=== PATIENT | male | born 1960 | race Caucasian/White ===

== ENCOUNTER 2016-03-20 13:22 | Inpatient (IN) ==
[2016-03-20] MEDS ORDERED: THIAMINE IM STA (13:26)
[2016-03-20] MEDS ORDERED: URO-JET MUCOUSMEMB STA (13:37)
[2016-03-20 13:53] LABS: BASOPHILS % (AUTO) 0.7 % (0.0-3.0); EOSINOPHILS # (AUTO) 0.1 K/ul (0.0-0.7); EOSINOPHILS % (AUTO) 1.8 % (0.0-7.0); HEMOGLOBIN 14.6 g/dl (14.0-18.0); IMMATURE GRANULOCYTE % (AUTO) 0.2 % (0.0-5.0); LYMPHOCYTES # (AUTO) 1.7 K/uL (0.60-3.4); LYMPHOCYTES % (AUTO) 37.6 (10.0-50.0); MEAN CORPUSCULAR VOLUME 88.3 fl (80.0-94.0); MONOCYTES # (AUTO) 0.5 K/uL (0.4-2.0); MONOCYTES % (AUTO) 10.4 (0-10); NEUTROPHILS # (AUTO) 2.2 K/ul (2.0-6.9); NEUTROPHILS % (AUTO) 49.3; PLATELET COUNT 183 10^3/uL (140-440); RED BLOOD COUNT 4.87 10^6/ul (4.70-6.10)
[2016-03-20 13:58] LABS: BILIRUBIN,URINE 1+ (NEGATIVE); KETONES,URINE Negative (NEGATIVE); LEUKOCYTE ESTERASE ,URINE Negative (NEGATIVE); NITRITE,URINE Negative (NEGATIVE); PROTEIN,URINE Trace (NEGATIVE); URINE, BLOOD Negative (NEGATIVE)
[2016-03-20 14:03] LABS: ADD URINE MICROSCOPIC YES
[2016-03-20 14:14] LABS: COCAIN SCREEN,URINE NEGATIVE (NEGATIVE)
[2016-03-20 14:20] LABS: ALANINE AMINOTRANSFERASE 148 U/L (12-78); ALBUMIN 3.7 g/dL (3.4-5.0); ALBUMIN/GLOBULIN RATIO 1.23; ALKALINE PHOSPHATASE 94 U/L (50-136); ANION GAP 15.8; ASPARTATE AMINO TRANSFERASE 122 U/L (15-37); BILIRUBIN,TOTAL 1.05 mg/dL (0.00-1.20); BLOOD UREA NITROGEN 14 mg/dL (7-18); BUN/CREATININE RATIO 15.38; CALCIUM 8.7 mg/dL (8.2-10.2); CARBON DIOXIDE 25 mmol/L (21-32); CHLORIDE 104 mmol/L (98-107); CREATINE KINASE 42 U/L; CREATININE 0.91 mg/dL (0.60-1.10); GLUCOSE 109 mg/dL (70-100); POTASSIUM 3.8 mmol/L (3.5-5.1); SODIUM 141 mmol/L (136-145); TOTAL PROTEIN 6.7 g/dL (6.4-8.2)
--- NOTE | 2016-03-20 14:37 | DI ---
EXAM: Single view of the chest. History: Cough. Comparison: Chest radiograph 10/07/2015 Findings: Normal heart size. No focal consolidation. No appreciable pleural fluid and no pneumoth orax. No acute osseous abnormalities. Impression: No acute cardiopulmonary process.
[2016-03-20] MEDS ORDERED: ATIVAN IVP STA (14:55)
--- NOTE | 2016-03-20 15:05 | CT ---
EXAM: CT BRAIN HISTORY: Altered mental status TECHNIQUE: CT brain without intravenous contrast. 5-mm axial sections with Reformations. COMPARISON: 07/31/2014 FINDINGS: Slight motion artifact degrades image quality. Brain is unremarkable without distinct evidence of h emorrhage or large vessel distribution recent ischemic infarction. There is no suggestion of acute hydrocephalus or subdural fluid collection. No mass or mass effect. Along the right lower occipital bone. There is a linear lucency which it is unchanged since prior s tudy and therefore unlikely to represent an acute fracture. Correlate clinically. Cranium was other cárdenas grossly unremarkable. Mastoid air cells are aerated and the visualized paranasal sinuses are c lear. IMPRESSION: No acute intracranial process. Linear lucency of the right occipital bone as described.
[2016-03-20 15:37] LABS: ACETAMINOPHEN < 3 ug/ml (10-30); SALICYLATE < 5.0 mg/dL (2.8-20.0)
--- NOTE | 2016-03-20 15:51 | ED.PDOC ---
General ED Provider: Dr. CRAIG MARTI Chief Complaint: Altered Mental Status Stated Complaint: altered mental status Time Seen by Physician: 13:24 Mode of Arrival: Carried Information Source: Patient, Family Exam Limitations: No limitations Nursing and Triage Documentation Reviewed and Agree: Yes Neurological Complaint Exam - Altered Mental Status Complaint/Exam Current Mental Status: Confusion, Agitation Last Known Well: this morning per friends Onset: Sudden Duration: present Symptoms Are: Still present Timing: Intermittent Episodes Lasting: Hours Initial Severity: Moderate Current Severity: Moderate Eye Deviation Present: No Character: Reports: Confusion, Agitation Aggravating: Reports: Drug abuse. Denies: Trauma, Ingestion, Environmental exposure Alleviating: Reports: Spontaneous resolution Associated Signs and Symptoms: Reports: Fever Related History: Reports: Similar episode Cardiac Risk Factors: Reports: None Related Surgical History: Reports: None Carotid Bruit Present: No Glascow Coma Scale (see protocol): 15 Nystagmus Present: No Gag Reflex Present: Yes Meningeal Signs Positive: No Focal Weakness: Present: None Focal Sensory Loss: Present: None Gait: Unable [id number]: Normal Findings Signs of Injury: Present: Normal findings Thrombolytics Considered: No Differential Diagnoses: Intoxication, Metabolic Disorder, Hypoglycemia, Overdose , Seizure, Sepsis Review of Systems - Review Of Systems Constitutional: Reports: Malaise, Weakness Eyes: Reports: No symptoms Ears, Nose, Mouth, Throat: Reports: No symptoms Respiratory: Reports: No symptoms Cardiac: Reports: No symptoms GI: Reports: Abdominal pain : Reports: No symptoms Musculoskeletal: Reports: No symptoms Skin: Reports: No symptoms Neurological: Reports: Cognitive dysfunction Endocrine: Reports: No symptoms Hematologic/Lymphatic: Reports: No symptoms All Other Systems: Reviewed and Negative Past Medical History - Past Medical History Previously Healthy: Yes Endocrine: Reports: None Cardiovascular: Reports: None Respiratory: Reports: None Hematological: Reports: None Gastrointestinal: Reports: None Genitourinary: Reports: None Neuro/Psych: Reports: None Musculoskeletal: Reports: None Cancer: Reports: None - Surgical History General Surgical History: Reports: Unknown - Family History Family History: Reports: Unknown - Social History Smoking Status: Former smoker Hx Substance Use: Yes Alcohol Screening: Heavy - Immunizations Tetanus Shot up to Date: Yes Physical Exam - Physical Exam Appearance: Well-appearing, No pain distress, Well-nourished Eyes: DERICK, EOMI, Conjunctiva clear ENT: Ears normal, Nose normal, Oropharynx normal Respiratory: Airway patent, Breath sounds clear, Breath sounds equal, Respirations nonlabored Cardiovascular: RRR, Pulses normal, No rub, No murmur GI/: Soft, Nontender, No masses, Bowel sounds normal, No Organomegaly Musculoskeletal: Normal strength, ROM intact, No edema, No calf tenderness Skin: Warm, Dry, Normal color Neurological: Sensation intact, Motor intact, Reflexes intact, Cranial nerves intact, Alert, Oriented Psychiatric: Affect appropriate, Mood appropriate Interpretation - Radiology Interpretation Radiology Interpretation By: Radiologist Radiology Results: No acute changes Re-Evaluation - Re-Evaluation Time of Re-Evaluation: 15:00 Status: Improved Vital Signs Stable: Yes Pain Level: 0 Appearance: NAD Lungs: Clear Skin: Warm and Dry Neuro: Alert and Oriented X3 CV: RRR - Re-Evaluation Time of Re-Evaluation: 15:52 Status: Improved Vital Signs Stable: Yes Pain Level: 0 Appearance: NAD Skin: Warm and Dry Neuro: Alert and Oriented X3 CV: RRR Physician Notification - Case Discussed Physician Notified: tucker Time of Notification: 15:53 Critical Care Note - Critical Care Note Total Time (mins): 0 Course - Course Hematology/Chemistry: 03/20/16 13:40 03/20/16 13:40 Orders, Labs, Meds: Lab Review 03/20/16 03/20/16 03/20/16 13:20 13:40 13:52 WBC 4.50 RBC 4.87 Hgb 14.6 Hct 43.0 MCV 88.3 MCH 30.0 MCHC 34.0 RDW Coeff of Jatin 14.8 Plt Count 183 Immature Gran % (Auto) 0.2 Neut % (Auto) 49.3 Lymph % (Auto) 37.6 [place] % (Auto) 10.4 H Eos % (Auto) 1.8 Baso % (Auto) 0.7 Immature Gran # (Auto) 0.0 Neut # 2.2 Lymph # 1.7 [place] # 0.5 Eos # 0.1 Baso # 0.0 Sodium 141 Potassium 3.8 Chloride 104 Carbon Dioxide 25 Anion Gap 15.8 BUN 14 Creatinine 0.91 Estimated GFR (MDRD) 86.00 BUN/Creatinine Ratio 15.38 Glucose 109 H Calcium 8.7 Total Bilirubin 1.05 AST 122 H ALT 148 H Alkaline Phosphatase 94 Total Creatine Kinase 42 Troponin I 0.0120 Total Protein 6.7 Albumin 3.7 Globulin 3.0 Albumin/Globulin Ratio 1.23 Urine Color Yellow Urine Clarity Clear Urine pH 6.0 Ur Specific [place] >=1.030 Urine Protein Trace Urine Glucose (UA) Negative Urine Ketones Negative Urine Blood Negative Urine Nitrite Negative Urine Bilirubin 1+ Urine Urobilinogen 0.2 Ur Leukocyte Esterase Negative Urine Microscopic WBC 0-2 Ur Squamous Epith Cells 0-2 Urine Mucus 1+ Salicylate Level mg/dL < 5.0 Urine Opiates Screen Negative Ur Oxycodone Screen Negative Urine Methadone Screen Negative Ur Propoxyphene Screen Negative Acetaminophen < 3 L Ur Barbiturates Screen Negative U Tricyclic Antidepress Negative Ur Phencyclidine Scrn Negative Ur Amphetamine Screen Positive U Methamphetamines Scrn Positive U Benzodiazepines Scrn Negative Urine Cocaine Screen Negative U Cannabinoids Screen Positive Plasma/Serum Alcohol < 10.0 Orders Category Date Time Status EKG-(ED ONLY) Stat CARDIO 03/20/16 13:25 Completed ED IV/MEDIPORT/POWERPORT .ONCE EMERGENCY 03/20/16 13:25 Active Francis [ED CATHETER INSERTION AND CARE] .ONCE EMERGENCY 03/20/16 13:37 Active BLOOD ALCOHOL Stat LAB 03/20/16 13:40 Completed BLOOD CULTURE Stat LAB 03/20/16 13:40 Received CBC W/ AUTO DIFF Stat LAB 03/20/16 13:40 Completed COMPREHENSIVE METABOLIC PANEL Stat LAB 03/20/16 13:40 Completed CREATINE KINASE Stat LAB 03/20/16 13:40 Completed MOLECULAR GROUP A STREP Stat LAB 03/20/16 13:50 Results SALICYLATE Stat LAB 03/20/16 13:20 Completed STREP SCREEN Stat LAB 03/20/16 13:50 Results TROPONIN I Stat LAB 03/20/16 13:40 Completed TYLENOL LEVEL [ACETAMINOPHEN] Stat LAB 03/20/16 13:20 Completed UA [URINALYSIS C & S IF INDICATED] Stat LAB 03/20/16 13:52 Completed URINE DRUG SCREEN (RAPID FOR ED) [DRUG SCREEN, URINE, LAB 03/20/16 13:52 Completed RAPID] Stat 0.9 % Sodium Chloride [Saline Flush] MEDS 03/20/16 13:25 Active 1 syr IVF PRN PRN Lidocaine HCl [Uro-Jet] MEDS 03/20/16 13:37 Discontinued 10 ml MUCOUSMEMB ONCE STA Lorazepam Inj [Ativan] MEDS 03/20/16 14:55 Discontinued 0.5 mg IVP ONCE STA Vitamin B-1 Inj [Thiamine] MEDS 03/20/16 13:26 Discontinued 100 mg IM ONCE STA CHEST, 1V AP ONLY Stat RADS 03/20/16 13:[address] ABD/PEL WO RENAL STONE PROT Stat RADS 03/20/16 15:[address] CHEST W/O CONTRAST Stat RADS 03/20/16 15:[address] HEAD W/O CONTRAST Stat RADS 03/20/16 13:27 Completed Medications Generic Name Dose Route Start Last Admin Trade Name Freq PRN Reason Stop Dose Admin Sodium Chloride 1 syr 03/20/16 13:25 Saline Flush IVF PRN PRN To flush IV Discontinued Medications Generic Name Dose Route Start Last Admin Trade Name Freq PRN Reason Stop Dose Admin Lidocaine HCl 10 ml 03/20/16 13:37 03/20/16 13:45 Uro-Jet MUCOUSMEMB 03/20/16 13:38 10 ml ONCE STA Administration Lorazepam 0.5 mg 03/20/16 14:55 Ativan IVP 03/20/16 14:56 ONCE STA Thiamine HCl 100 mg 03/20/16 13:26 03/20/16 14:11 Thiamine IM 03/20/16 13:27 100 mg ONCE STA Administration Vital Signs: Temp Pulse Resp BP Pulse Ox 03/20/16 15:32 96 H 16 106/62 94 L 03/20/16 15:14 103 H 20 115/66 96 03/20/16 14:49 112 H 20 141/87 H 95 03/20/16 14:25 114 H 20 143/99 H 03/20/16 13:23 100.0 F H 107 H 16 116/74 95 Departure - Departure Time of Disposition: 17:00 Disposition: ADMITTED INPATIENT Discharge Problem: Altered mental status, Methamphetamine abuse Instructions: Methamphetamine Abuse (ED) Condition: Good Pt referred to PMD for follow-up: Yes (admitt) Allergies/Adverse Reactions: Allergies No Known Allergies Allergy (Unverified 07/31/14 19:09) Home Medications: Ambulatory Orders 1 [Unobtainable] 07/31/14 Disposition Discussed With: Patient
--- NOTE | 2016-03-20 16:18 | CT ---
EXAM: CT of the chest without cough. History: Cough. Comparison: CT abdomen pelvis 03/20/2016, chest radiograph 03/20/2016 Technique: Multiplanar CT images through the thorax were obtained without the administration of IV contrast Findings: Heart size is within normal limits. No pericardial effusion. There are mild coronary ca lcifications. The main pulmonary artery is dilated measuring 3.7 cm in caliber. No pathologically enlarged axillary or mediastinal lymph nodes. Evaluation for hilar lymph nodes is limited due to th e lack of contrast administration but no bulky hilar adenopathy is seen. No consolidated pneumonia. Very mild upper lobe centrilobular emphysema. Dependent atelectasis. 3 mm right lower lobe pleural-based nodule. There are a few ground-glass nodules within the right lo wer lobe with tree-in-bud configuration. No pleural fluid and no pneumothorax. Details in the upper abdomen, please see dedicated CT of the abdomen pelvis done on the same day. N o acute osseous abnormalities. Impression: 1. Right lung micronodules with tree-in-bud configuration most likely related to infectious or infl ammatory process but given the mild emphysema would recommend follow-up chest CT in 6 months to doc ument resolution. 2. There is no consolidated pneumonia. 3. Dependent atelectasis. 4. Dilated main pulmonary artery indicating pulmonary arterial hypertension. 5. Mild coronary calcifications.
--- NOTE | 2016-03-20 16:27 | CT ---
EXAM: CT ABDOMEN AND PELVIS HISTORY: Abdominal pain TECHNIQUE: CT abdomen and pelvis without intravenous contrast. Images were reconstructed using 5 m m section thickness. Reformations were prepared. COMPARISON: 10/07/2015 FINDINGS: Diagnostic limitations exist without including contrast enhanced images. There is artifact from mot ion and the arms remaining down within the scanning field of view limiting image quality. Slightly heterogeneous appearance of the liver, otherwise the organ is within normal limits. Spleen unremark able. The gallbladder is mildly distended. There is at least one tiny calculus within the gallblad mil. No obvious gallbladder wall thickening or surrounding inflammatory infiltration of the abdomin al fat. No gross pancreatic or adrenal pathology. There is no nephrolithiasis or hydronephrosis. The visualized ureters are grossly unremarkable. Mild atherosclerotic disease. Stable nonspecific retroperitoneal lymph nodes, greater number than normally seen for patient age. No gastric distension. The appendix has no evidence of inflammation. Bowel gas pattern is within n ormal limits. There is mild distal colon diverticulosis. Circumferential urinary bladder wall thic kening. There is a tiny drop of gas within the urinary bladder. No prostate enlargement. There is no ascites. No abdominal wall hernia. Bones reveal bilateral pars into articular areas defects at L5 with minimal spondylolisthesis. Lung bases have no acute infiltrates. No visible pneumoperiton eum. IMPRESSION: 1. Circumferential urinary bladder wall thickening is mild to moderate. This may be related to cys titis or a degree of chronic partial urinary bladder outlet obstruction. There is a tiny drop of ga s within urinary bladder of indeterminate etiology, possibly recent catheterization. Correlate wit h history and urinalysis if indicated. 2. Mildly distended gallbladder with at least one tiny calculus. 3. Heterogeneous liver. 4. Stable retroperitoneal lymph nodes. 5. Mild distal colon diverticulosis.
[2016-03-20] MEDS: ATIVAN IVP SCH (19:05)
[2016-03-20 22:42] VITALS: BMI 19.4
[2016-03-20 23:35] LABS: TROPONIN I 0.01 ng/ml (0.0000-0.4000)
[2016-03-21] MEDS: ATIVAN IVP SCH ×2 (00:48→05:42)
[2016-03-21] MEDS: SODIUM CHLORIDE 1,000 ML IV SCH ×2 (06:08)
[2016-03-21 09:51] VITALS: BP 122/74; TEMP 97.9
--- NOTE | 2016-03-23 14:19 | HP ---
DATE OF SERVICE: 03/20/16 REASON FOR HOSPITALIZATION: Change in mental status. HISTORY OF PRESENT ILLNESS: The patient is a 55 year old male who was brought by the friend to the emergency room as she was check on him he was not able to speak and behavior was not right and his answering was not right and following the commands, disoriented, weak, sluggish speech and slurry speech. When he was elevated in the emergency room he was following the commands and slurry speech was there and generalized weakness was there. In the evaluation Dr. Canales did the CAT scan of the head which did not show any stroke but the urine drug screen was positive for the amphetamine and methamphetamine and cannabis and the alcohol was less than 10. His liver enzymes were elevated 122 and 148. At that time the patient was admitted to the hospital for change in mental status and drug overdose. REVIEW OF SYSTEMS: Difficult to obtain from the patient at that time. CONSTITUTIONAL: No night sweats. No fatigue, malaise, lethargy. No fever or chills. HEENT: Eyes: No visual changes. No eye pain. No eye discharge. ENT: No runny nose. No epistaxis. No sinus pain. No sore throat. No odynophagia. No ear pain. No congestion. RESPIRATORY: No cough, no congestion. No hemoptysis. CARDIOVASCULAR: No angina symptoms. No CHF symptoms. No atypical chest pain for CAD. No palpitations. No shortness of breath. GASTROINTESTINAL: No abdominal pain. No nausea or vomiting. No diarrhea or constipation. No hematemesis. No hematochezia. GENITOURINARY: No urgency. No frequency. No dysuria. No hematuria. No obstructive symptoms. No discharge. No pain. No significant abnormal bleeding. MUSCULOSKELETAL: No musculoskeletal pain. No joint swelling. No arthritis. NEUROLOGICAL: No headache. No neck pain. No syncope. No seizures. No dizziness. PSYCHIATRIC: Not anxious. No depression. No suicidal thoughts. No homicidal thoughts. SKIN: No rash. No lesions. No wounds. ENDOCRINE: No unexplained weight loss. No weight gain. HEMATOLOGIC/LYMPHATIC: No anemia. No purpura. No petechiae. No prolonged or excessive bleeding. No palpable lymph nodes. PERSONAL/FAMILY/SOCIAL HISTORY: Smoking and drug use. Family history is not significant. PAST MEDICAL/SURGICAL PROBLEMS: Coronary artery disease Congestive heart failure Heart attack two times Seizure disorder, used to take Dilantin, hasn't had seizure in 4 years. COPD GERD Osteoarthritis DJD spine Depression, goes to Dr. Brenner MEDICATIONS: Could not be obtain as patient doesn't want to give any information. ALLERGIES: No known drug allergies PHYSICAL EXAMINATION: VITAL SIGNS: Blood pressure 116/74, respiratory rate 16, heart rate 107 and temperature 100. HEENT: Head normocephalic, atraumatic. Eyes: Extraocular muscles are intact. Pupils are equal, round and reactive to light and accommodation. Ears: No lesions. Nose appeared normal. Throat: No exudate or erythema. Mucosa dry. Pallor positive. NECK: Supple. No JVD, no carotid bruit. No lymphadenopathy or thyromegaly. LUNGS: Clear to auscultation. Percussion note normal. Chest symmetrical. HEART: S1, S2, no S3. No murmurs. No cyanosis or clubbing. No ascites. Pulses: Dorsalis pedis and posterior tibial pulses +1 to +2 both sides. ABDOMEN: Soft. Nontender. Bowel sounds active. No CVA tenderness. No mass felt. EXTREMITIES: No edema. Full range of motion of all extremities, equal. NEUROLOGIC: No focal deficit. Cranial nerves II through XII are grossly intact. No headache, no double vision or headache. Awake and alert but does not follow commands. Speech is still slurry. Avoiding the questions and goes back to sleep. Unkept. SKIN: Not dry. Intact. Turgor - normal. LYMPHATIC: No palpable lymph nodes/no lymphedema. MUSCULOSKELETAL: Normal joints with no swelling. Muscle tone is normal. LABS: WBC 4.50, hgb 14.6, hct 43.0, plt count 183, sodium 141, potassium 3.8, chloride 104, bicarb 25, BUN 14, creatinine 0.91, glucose 109, AST 122 and ALT 148. Toxicology positive for the amphetamine, methamphetamine and cannabis. ASSESSMENT: 1. Change in mental status, most likely from the recreational drugs 2. Elevated liver enzymes; The patient has a history of alcoholism and liver enzymes have been elevated for a long time. Even from July 2014 they have been high. 3. History of Hypertension 4. Coronary artery disease 5. Seizure disorder 6. COPD PLAN: 1. Admit patient to the regular floor 2. IV fluids 3. Ativan 0.5mg Q 6 hours 4. Banana bag 5. Lorazepam 0.5 mg q.6hr p.r.n. 6. Fall precautions 7. Neuro checks Will follow the patient in daily rounds. TIME SPENT: More than 60 minutes. MTDD
--- NOTE | 2016-03-23 14:37 | PN ---
DATE OF SERVICE: 03/21/16 SUBJECTIVE: The patient is sitting in the bed and not in any distress and says that he is feeling a lot better but worried about the home. When asked about the drugs he did not confirm that he takes it. He says that he is also trying to cut down on the alcohol lately. Otherwise just some stress from being in the hospital. REVIEW OF SYSTEMS: CONSTITUTIONAL: No fever, no chills. HEENT: Normal. ENDOCRINE: No weight gain, no weight loss. CVS: No angina symptoms. No CHF symptoms. No palpitations. No atypical chest pain for CAD. No shortness of breath. No PND, no orthopnea. RESPIRATORY: No cough, no hemoptysis. GI: No nausea, no vomiting. No abdominal pain. : No hematuria. No polyuria. MUSCULOSKELETAL:. No joint swelling. PSYCHIATRIC: Not anxious. No depression. No suicidal thoughts. No homicidal thoughts. SKIN: Intact. No rash. PHYSICAL EXAMINATION: V/S: blood pressure 122/74, respiratory rate 20, heart rate 89 and temperature 97.9. HEENT: Normocephalic, atraumatic. Ears, eyes, nose and throat normal. Mucosa dry. NECK: Supple. No JVD, no carotid bruit. No lymphadenopathy. LUNGS: Decreased and clear to auscultation. No rales or rhonchi. HEART: S1, S2 normal. No S3. No murmur, gallop or regurgitation. ABDOMEN: Soft, nontender. Bowel sounds active. No rigidity. No rebound or guarding. No CVA tenderness. EXTREMITIES: No clubbing, cyanosis or pedal edema. MUSCULOSKELETAL: No joint swelling. NEUROLOGIC: Awake, alert, oriented times three. No focal deficit. LYMPHATIC: No lymph nodes palpable. SKIN: Intact. LABS: WBC 4.50, hgb 14.6, hct 43.0, plt count 183, Sodium 141, potassium 3.8, Chloride 104, bicarb 25, BUN 14, creatinine 0.91, Glucose 109, AST 122 and ALT 148. ASSESSMENT: 1. Status post change in mental status secondary to the drug use. 2. Elevated liver enzymes from the chronic alcohol liver disease 3. Hypertension 4. Coronary artery disease 5. Dyslipidemia 6. Seizure disorder PLAN: 1. Continue the Ativan PRN 2. IV fluids 3. Out of bed to chair 4. Will get the information on the medication list and restart them. TIME SPENT: More than 30 minutes REJI
--- NOTE | 2016-03-23 14:46 | AMA ---
HISTORY: After the rounds, immediately Nurse Mirella called me that patient is more stress out and he wants to leave against medical advise. I went and talked to him personally. Asking it's not a good idea to go as patient is still recovering from the drugs. He said "No I don't care I'm worried about my house". Despite explaining the patient did stay and left against medical advise. Advised that if in case the patient doesn't feel good and things get worse he can always come back. REJI
== END 2016-03-21 11:15 | disposition left against medical advice (07) | DRG 948 ==
LOC: ED 13:22 → SCU 17:24
PROVIDERS: ADMIT Emergency Medicine; ATTEND Emergency Medicine
DX: R41.82 Altered mental status, unspecified (principal); F15.10 Other stimulant abuse, uncomplicated; R10.9 Unspecified abdominal pain; R79.89 Other specified abnormal findings of blood chemistry; K70.9 Alcoholic liver disease, unspecified; I10 Essential (primary) hypertension; I25.10 Atherosclerotic heart disease of native coronary artery without angina pectoris; E78.5 Hyperlipidemia, unspecified; G40.909 Epilepsy, unspecified, not intractable, without status epilepticus
CPT/HCPCS: 36415; 74176; 80053; 80306; 80307; 81001; 82550; 84484; 85025; 87040; 87651; 87880; 93005; 93010; 96360; 96361; 96372; 99223; 99233; 99284